=== PATIENT | male | born 1965 | race Caucasian/White ===

== ENCOUNTER 2022-04-01 11:43 | Emergency (ER) | payer OTHER, MEDICAID, SELFPAY ==
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
--- NOTE | ~2022-04-01 | XR_ITS ---
EXAMINATION:XR cervical spine 2V CLINICAL INFORMATION: Pain COMPARISON: None TECHNIQUE: 3 views of the cervical spine were obtained. Frontal lateral and open-mouth odontoid view FINDINGS: 7 cervical vertebrae identified maintaining normal height and alignments.. Narrowing of intervertebral disc spaces at C4-C5, C5-C6, C6-C7 and C7-T1 and developed large anterior osteophytes suggests underlying moderate degenerative disc disease. No prevertebral soft tissue swelling. Surrounding soft tissue and included lung apices are clear. Included lung apices are clear. XR/XR cervical spine 2V IMPRESSION: No fracture. Narrowing of intervertebral disc spaces suggest underlying degenerative disc disease. . Bone alignments are satisfactory.
[2022-04-01 11:47] VITALS: BP 172/99; PULSE 96; RESP 19; TEMP 36.8; O2SAT 98; BMI 31.6
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
[2022-04-01 13:35] VITALS: BP 151/98; PULSE 75; RESP 18; TEMP 36.8; O2SAT 99
== END 2022-04-01 14:26 | disposition home or self-care (01) ==
PROVIDERS: Emergency Provider Emergency Medicine
DX: S39.012A Strain of muscle, fascia and tendon of lower back, initial encounter (principal); S16.1XXA Strain of muscle, fascia and tendon at neck level, initial encounter; S40.011A Contusion of right shoulder, initial encounter; S80.01XA Contusion of right knee, initial encounter; V43.52XA Car driver injured in collision with other type car in traffic accident, initial encounter; Y93.89 Activity, other specified; Y92.414 Local residential or business street as the place of occurrence of the external cause; Y99.9 Unspecified external cause status
CPT/HCPCS: 72040; 72100; 73030; 99283

== ENCOUNTER 2022-04-18 10:36 | Emergency (ER) | payer MEDICAID, SELFPAY ==
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
[2022-04-18 11:56] VITALS: BP 171/100; PULSE 75; RESP 16; TEMP 36.1; O2SAT 100; BMI 28.5
[2022-04-18] MEDS: Ketorolac Tromethamine 60 MG/2 ML VIAL IM (12:10)
== END 2022-04-18 12:24 | disposition home or self-care (01) ==
PROVIDERS: Emergency Provider Emergency Medicine
DX: G89.29 Other chronic pain (principal); M25.511 Pain in right shoulder; M54.6 Pain in thoracic spine; M54.2 Cervicalgia
CPT/HCPCS: 96372; 99283; 99284; J1885

== ENCOUNTER → 2022-07-06 10:06 | Outpatient (BNVA) | payer MEDICAID, SELFPAY | PROVIDERS: Visit Provider Physician Assistant | DX: M75.101 Unspecified rotator cuff tear or rupture of right shoulder, not specified as traumatic (principal) | CPT/HCPCS: 99202 ==

== ENCOUNTER 2022-07-20 18:30 | Outpatient (REF) | payer MEDICAID, SELFPAY ==
--- NOTE | ~2022-07-20 | MR_ITS ---
EXAMINATION: MR SHOULDER WITHOUT CONTRAST, RIGHT CLINICAL INFORMATION: Right shoulder pain. COMPARISON: None TECHNIQUE: MRI of the shoulder without contrast was performed on a high-field scanner. FINDINGS: ROTATOR CUFF: Supraspinatus tendinosis with mild ill-defined interstitial partial tearing at the posterior aspect of the tendon insertion measuring 10 mm in AP dimension. The rotator cuff appears otherwise intact. No muscle atrophy or fatty infiltration. BICEPS: Normal. CORACOACROMIAL ARCH: The undersurface of the acromion is flat with no subacromial spur. The coracohumeral distance is slightly narrowed measuring 7 mm. Moderate acromioclavicular osteoarthritis. LABRUM/CAPSULE: No definite labral tear. GLENOHUMERAL JOINT/MARROW: Degenerative changes at the posterolateral aspect of the humeral head. Small osteophytes along the posterior glenoid rim and chronic degenerative marrow changes of the anterior inferior glenoid. No joint effusion. MR/MR shoulder RT wo con IMPRESSION: Supraspinatus tendinosis with mild ill-defined interstitial partial tearing posteriorly. Moderate acromioclavicular and mild glenohumeral osteoarthritis.
== END 2022-07-20 18:31 | disposition home or self-care (01) ==
LOC: HO.MRI 18:30
PROVIDERS: Visit Provider Physician Assistant
DX: M75.101 Unspecified rotator cuff tear or rupture of right shoulder, not specified as traumatic (principal)
CPT/HCPCS: 73221

== ENCOUNTER → 2022-08-03 10:10 | Outpatient (BNVA) | payer MEDICAID, SELFPAY | PROVIDERS: Visit Provider Physician Assistant | DX: M75.101 Unspecified rotator cuff tear or rupture of right shoulder, not specified as traumatic (principal); M19.011 Primary osteoarthritis, right shoulder | CPT/HCPCS: 99212 ==

== ENCOUNTER 2024-01-21 12:17 | Outpatient (RCR) | payer MEDICAID, SELFPAY ==
[2024-01-21 13:07] VITALS: BP 140/90
== END 2024-03-10 13:48 | disposition home or self-care (01) ==
LOC: HO.PT 12:17
PROVIDERS: PCP Registered Nurse; Visit Provider Registered Nurse
DX: R42 Dizziness and giddiness (principal)
CPT/HCPCS: 97162

== ENCOUNTER 2024-02-14 08:43 | Outpatient (REF) | payer MEDICAID, SELFPAY ==
[2024-02-14 12:00] LABS: Alanine Aminotransferase 9 U/L (0-40); Albumin Level 4.5 g/dL (3.5-5.0); Alkaline Phosphatase 50 U/L (39-117); Anion Gap 11 (12-20); Aspartate Amino Transferase 13 U/L (5-37); Bilirubin Total 0.3 mg/dL (0.0-1.0); Blood Urea Nitrogen 16 mg/dL (9-16); Calcium 10.2 mg/dL (8.4-10.2); Carbon Dioxide 31 mmol/L (22-29); Chloride 104 mmol/L (96-108); Cholesterol 216 mg/dL (<200); Estimated Glomerular Filt Rate > 60; Glucose Random 113 mg/dL (60-115); HDL Cholesterol 40 mg/dL (>40); LDL Cholesterol Calculated 156 mg/dL (<100); Potassium 4.2 mmol/L (3.3-5.1); Sodium 142 mmol/L (135-145); Total Protein 7.9 g/dL (6.5-8.0); Triglycerides 100 mg/dL (<150)
== END 2024-02-14 08:44 | disposition home or self-care (01) ==
LOC: HO.HHCL 08:43
PROVIDERS: Visit Provider Internal Medicine Geriatric Medicine
DX: I10 Essential (primary) hypertension (principal); R42 Dizziness and giddiness
CPT/HCPCS: 36415; 80053; 80061

== ENCOUNTER 2024-06-26 08:59 | Outpatient (REF) | payer MEDICAID, SELFPAY ==
[2024-06-26 11:54] LABS: Alanine Aminotransferase 15 U/L (0-40); Albumin Level 3.9 g/dL (3.5-5.0); Alkaline Phosphatase 57 U/L (39-117); Anion Gap 10 (12-20); Aspartate Amino Transferase 15 U/L (5-37); Bilirubin Total 0.3 mg/dL (0.0-1.0); Blood Urea Nitrogen 16 mg/dL (9-16); Calcium 9.7 mg/dL (8.4-10.2); Carbon Dioxide 28 mmol/L (22-29); Chloride 105 mmol/L (96-108); Cholesterol 115 mg/dL (<200); Estimated Glomerular Filt Rate > 60; Glucose Random 104 mg/dL (60-115); HDL Cholesterol 30 mg/dL (>40); LDL Cholesterol Calculated 72 mg/dL (<100); Potassium 4.1 mmol/L (3.3-5.1); Sodium 139 mmol/L (135-145); Total Protein 7.5 g/dL (6.5-8.0); Triglycerides 67 mg/dL (<150)
== END 2024-06-26 09:00 | disposition home or self-care (01) ==
LOC: HO.HHCL 08:59
PROVIDERS: Visit Provider Internal Medicine Geriatric Medicine
DX: I10 Essential (primary) hypertension (principal); Z79.899 Other long term (current) drug therapy
CPT/HCPCS: 36415; 80053; 80061

== ENCOUNTER 2024-11-05 13:00 | Outpatient (AMB) | payer MEDICAID, SELFPAY ==
--- NOTE | 2024-11-05 13:06 | A.OFFVIS_ITS ---
Vital Signs 11/05/24 13:08 Weight 165 lb 5.547 oz BP 132/82 Blood Pressure Location Rt brachial Position Sitting Pulse 81 Intake Visit Reasons: positive cologuard Intake Note: Mat presents in the office as a new patient for a positive cologuard. CC: He states that he is not having any concerns at this time. No irregular bowel movements. Covered Buckle Assembler Required: Yes Covered Buckle Assembler Language: Space Systems Operations Manager Services: Covered Buckle Assembler Present (AGNES Antunez) Covered Buckle Assembler Name: [id number] Bonifacio Antunez LM Allergies No Known Allergies Allergy (Unverified 11/05/24 13:10) HPI HPI positive cologuard: Details: 59-year-old male with past medical history of asthma, hypertension, hypercholesteremia is here today for pre colonoscopy screening.? Patient was sent to us by his/her PCP.? This is his first colonoscopy screening. Patient had positive Cologuard in June of 2024? Patient denies any gastrointestinal symptoms in the past or at present.? Denies any personal or family history of gastrointestinal disease, colon polyps, or CRC.? Denies history of difficulty with sedation or anesthesia in the past.? Negative for history of sleep apnea.? Denies any history of cardiac, renal, pulmonary, or hepatic disease.?? No history of infectious? diseases like hepatitis A, B, C, HIV or tuberculosis.? Patient is not on any anticoagulation [facility] Medical History Seasonal allergic reaction High blood pressure High cholesterol Surgical History Hx of cholecystectomy (~2016) Social History Current occupational status: employed Current occupation: CORPORATE SECURITY OFFICER/ rt hand Review of Systems Const Denies weight gain and Denies weight loss ENT Reports no additional complaints, Denies dysphagia and Denies odynophagia Card Reports no additional complaints Resp Reports no additional complaints GI Denies abdominal pain, Denies belching, Denies melena, Denies bloating, Denies change in bowel habits, Denies dysphagia, Denies excessive flatus, Denies dyspepsia, Denies heartburn, Denies diarrhea, Denies loose stools, Denies nausea, Denies odynophagia and Denies vomiting Reports no additional complaints Musc Reports no additional complaints Neuro Reports no additional complaints Psych Reports no additional complaints Endo Reports no additional complaints Physical Exam Vital Signs: Last Vital Signs Pulse 81 11/05/24 13:08 BP 132/82 11/05/24 13:08 Const General: healthy appearing, no acute distress and well developed Nutritional Appearance: well nourished Orientation/consciousness: patient oriented x3 Resp Effort & Inspection: normal respiratory effort, able to speak in complete sentences, no tracheal deviation and symmetric chest movement Auscultation: clear to auscultation bilaterally Cardio Rate: regular rate GI Inspection: Yes normal to inspection and No distended Palpation (GI): Soft to palpation, not firm, nontender and No hepatosplenomegaly present Auscultation: normal bowel sounds General: Yes no CVA tenderness Back/Spine/Pelvis Back: no CVA tenderness Skin General skin exam: elasticity normal, turgor normal and dry skin Neuro General: patient oriented x3 Psych Appearance: grossly normal Mental Status: mental status grossly normal Assessment & Plan Assessment & Plan (1) Positive colorectal cancer screening using Cologuard test: Code(s): R19.5 - Other fecal abnormalities Plan Patient denies any GI, cardiac or respiratory symptoms.? Denies any issues with anesthesia in the past.? Denies any history of sleep apnea.? No history infectious diseases in the past or present.? Not on any anticoagulation therapy.? No family or personal history of colon cancer or polyps.? Positive Cologuard. Patient denies melena, hematochezia, unintentional weight loss or ribbon like stools.? Discussed at length the pre-procedure,? prep, diet & medications as well as what to expect prior, during and after the procedure.?? Stressed the importance of good bowel prep.? Recommended the use of Vaseline or Calmoseptine OTC & baby wipes with bowel movements to promote comfort.? ?Patient verbalizes understanding and agrees to plan of care.? He was given the opportunity to ask questions and all questions answered.? We will see him after the procedure.? Medications: New bisacodyl (Dulcolax (bisacodyl)) take 4 tabs at noon the day before your colonoscopy 20 mg (4 x 5 mg) PO ONCE 4 tabs 0RF 1 day Z12.11 - Encounter for screening for malignant neoplasm of colon polyethylene glycol 3350 (Miralax) As directed by gastroenterology department at [facility] 238 grams PO ONCE 238 grams 0RF Z12.11 - Encounter for screening for malignant neoplasm of colon Coding Level of Care Code New Pt Level 3 (59014) Diagnoses Positive colorectal cancer screening using Cologuard test R19.5 Time Spent (min) 40 Comment 30 minutes spent with patient and additional 10 minutes spent reviewing his records
[2024-11-05 13:08] VITALS: BP 132/82; PULSE 81
--- OUTSIDE RECORDS SUMMARY | 2024-11-05 15:35 | XMS_ITS | Data Portability ---
Author Organization [place] - [facility], Allergy Address [address] [address] Assessment Encounter Date Assessment Date Assessment LastModified by Organization Details LastModified Time 03/28/2024 03/28/2024 58-year-old male presents for review of MRI. MRI brain/IAC 03/13/24 was negative for retrocochlear pathology. Recommended yearly audiometric testing. Patient is a candidate for right-sided amplification and medical clearance was provided today. Patient referred to vestibular therapy for BPPV, but declined treatment. amy Not available 03/28/2024 10:45:36 Plan of Treatment Reminders Order Date Submit Date Provider Last Modified By Organization Details Last Modified Time Details Appointments None record ed. Lab None record ed. Referral None record ed. Procedures None record ed. Surgeries None record ed. Imaging None record ed. Medication Orders None record ed. Patient TargetsNo targets recorded. Patient InstructionsNo instructions recorded. Reason for Referral None Reported. Results Created Date Observation Date Name Description Value Unit Range Abnormal Flag Note LastModifiedBy Organization Detail LastModifiedTime 03/14/20 24 03/13/2024 MRI, brain + brain stem, w/wo contr ast [facility] Access ion Number : [id number] Name: Toma sepulveda, Mat Martela l Record Number : [id number] Date of : 1964 Date of Exam: 2023 Referr ing Physic jeff[facility] [address] [facility], [address] [facility], [place] [address] Exam: MR Brain (C-/C+ ) CPT 07437 Room Descri ption: [facility] 3T MR Brain (C-/C+ ) CPT 47990 INDICA TION / CLINIC AL QUESTI ON: Benign Paroxy smal Vertig o, Bilate ral Sensor ineura l Hearin g Loss, Bilate ral TECHNI QUE: Multip lanar, multis equenc e MRI of the brain was perfor med with and withou t intrav enous contra st. 15 mL Dotare m intrav enous contra st was admini stered . COMPAR KAMRON: None. FINDIN GS: IAC: There is no mass or abnorm al enhanc ement in the sports apparel internship al audito ry canals or cerebe llopon ariela angles . Course and calibe r of the 7th and 8th crania l nerves is normal bilate rally. Fluid signal is preser alberto in the inner ear struct ures bilate rally. Brains tem demons trates normal signal . BRAIN and EXTRA- AXIAL SPACES : Minima l foci of T2 prolon gation are seen in the suprat entori al white matter , nonspe cific but likely reflec ting chroni c small vessel diseas e. Mild promin ence of ventri cles and sulci is compat ible with minor volume loss. Otherw ise no signif icant abnorm ality of the visual ized portio ns of the brain and extra- axial spaces . EXTRAC RANIAL SOFT TISSUE S: Visual ized portio ns of the extrac ranial soft tissue s are unrema rkable . BONES: Visual ized marrow signal is preser alberto. IMPRES JOAO: No retroc ochlea r abnorm ality to explai n the patien t?s sympto ms. Electr onical ly Signed By: Adria [email or web address] [facility] ([facility]) [address], [place], [address], 03/14/2024 15:54:09 03/14/20 24 03/13/2024 MRI, brain + inter nal audit ory canal , w/wo contr ast No observ ation record ed. [email or web address] [facility] ([facility]) [address], [place], [address], 03/26/2024 15:00:35 06/10/20 24 02/18/2024 imagi ng/di agnos tic resul t No observ ation record ed. [email or web address] Not Available 13:04:42 Result Notes None recorded. Problems Name Problem SNOMED Code Status Onset Date Resolution Date Notes Provider Name and Address Organization Details Recorded Time Sensorine ural hearing loss of bilateral ears 881936989 Active 2023 PAPITO EBLLAMY PA-C [address] [address], [place], [address] , [facility] 4 10:22:40 Benign paroxysma l positiona l vertigo 297470294 Active 2023 PAPITO BELLAMY PA-C [address] [facility] [address], [place], [address] , [facility] 4 10:45:59 Benign paroxysma l positiona l vertigo 892782241 Active 2023 Benign paroxysmal vertigo, bilateral; Note: Date Diagnosed: 02/18/2024 12:01 PM (H81.13) Not Available [facility] 02:13:57 Problem Notes None recorded. Procedures Surgical History None recorded. Imaging Results Imaging Date Name Status LastModified by Organiz ation Details LastModified Time 03/13/2024 MRI, brain + brain stem, w/wo contrast completed [address] [facility] ([facility] [address], [place], [address], 03/14/2024 15:54:09 03/13/2024 MRI, brain + internal auditory canal, w/wo contrast completed [facility] ([facility]) [address], [place], [address], 03/26/2024 15:00:35 02/18/2024 imaging/diagn ostic result completed [email or web address] Information not available 06/10/2024 13:04:42 Procedure Notes None recorded. Medical Equipment None Reported. Medications Name Sig Start Date Stop Date Status Note LastModified by Organization Details LastModified Time lisinopril 20 mg-hydroch lorothiazi de 12.5 mg tablet active Medicatio n ID: [id number] Br and Name: lisinopri l-hydroch lorothiaz viv Send Method: E-Prescri bed Subs Allowed: subs OK Specia l Instructi on: TOME 1 TABLETA POR V A ORAL TODOS LOS D EN LA ARTEMIO VERO Medic ationGene ricName: lisinopri l-hydroch lorothiaz viv Not Available Not Available Not Available lisinopril 20 mg tablet TOME KORINA TABLETA TODOS LOS D EN LA ARTEMIO VERO active Not Available Not Available No t Available meclizine 25 mg tablet active Medicatio n ID: [id number] Br and Name: meclizine Send Method: E-Prescri bed Subs Allowed: subs OK Specia l Instructi on: PLEASE SEE ATTACHED FOR DETAILED DIRECTION S Medicat ionGeneri cName: meclizine Not Available Not Available Not Available lisinopril 10 mg tablet TOME KORINA TABLETA TODOS LOS D EN LA ARTEMIO VERO active Not Available Not Available No t Available dorzolamid e 22.3 mg-timolol 6.8 mg/mL eye drops INSTILL 1 DROP IN BOTH EYES TWICE A DAY TWELVE HOURS APART active Not Available Not Available No t Available fluticason e propionate 50 mcg/actuat ion nasal spray,susp ension PLEASE SEE ATTACHED FOR DETAILED DIRECTION S active Not Available Not Available No t Available loratadine 10 mg tablet TOME KORINA TABLETA TODOS LOS D EN LA ARTEMIO VERO active Not Available Not Available No t Available Vitals Date Recorded Body height Body mass index (BMI) Body weight Provider Name and Address Organization Details Last Updated DateTime 03/28/2024 167.64 cm 26.6 kg/m2 12386.74 g GERMAN SCOTT, [address], [address], [place] - [facility] 03/28/2024 10:25:38 Social History None recorded. Functional Status None recorded. Mental Status None recorded. Family History Nothing Reported. Medical History No medical history recorded. Past Encounters Encounter ID Performer Location Encounter Start Date Encounter Closed Date Diagnosis/Indication Diagnosis SNOMED-CT Code Diagnosis ICD10 Code Diagnosis Note [id number] LUIZA FOY MD [facility] [address] [address] 03/28/2024 10:15:50 03/28/2024 10:41:27 Sensorineural hearing loss of bilateral ears 546061405 H90.3 Benign par oxysmal positional vertigo 134678589 H81.13 Health Concerns Section Related Observation LastModified by Organization Detai ls LastModified Time None Recorded Concern Status LastModified by Organization Details LastModified Time None Recorded Advance Directives Directive None Recorded Payers Encounter Date Sequence Insurance Name Policy Number Policy Corea Covered Member ID Corea Member ID Guarantor Name 03/28/2024 1 [place] [facility] Mat Rodriguez [id number] Mat Rodriguez Notes Date Note Type Note Provider Name and Address Organization Details Recorded Time 03/28/2024 text/html 58-year-old male presents for review of MRI brain. Imaging was recommended for further evaluation of asymmetric hearing loss and dizziness. He was referred to vestibular therapy for BPPV but declined therapy treatment. He reports longstanding hearing loss, worse on the right. Denies otorrhea, otalgia, and tinnitus. LUIZA FOY MD [address] [place] [address], [place], [address], [facility] - [facility] 03/28/2024 17:23:24
== END 2024-11-05 14:30 | disposition home or self-care (01) ==
PROVIDERS: PCP Registered Nurse; Visit Provider Nurse Practitioner Family
DX: R19.5 Other fecal abnormalities (principal)
CPT/HCPCS: 99203

== ENCOUNTER → 2024-11-05 13:00 | Outpatient (BNVA) | payer MEDICAID, SELFPAY | PROVIDERS: PCP Registered Nurse; Visit Provider Nurse Practitioner Family | DX: R19.5 Other fecal abnormalities (principal) | CPT/HCPCS: 99212 ==